=== PATIENT | female | born 1980 | race Caucasian/White ===

== ENCOUNTER 2019-12-30 12:07 | Emergency (ER) | payer MEDICAID, SELFPAY ==
[2019-12-30 13:13] VITALS: BP 117/64; PULSE 78; RESP 16; TEMP 36.2; O2SAT 100; BMI 25.0
--- NOTE | 2019-12-30 13:29 | PC.NURSE ---
patient a&ox3, [facility]- pt has bilateral raccoon eyes, rt forhead abrasion which she said previously had swelling to location, pt also has bilat knee abrasions, pt states she has had ongoing dizziness, nausea and headache. vss, will continue to monitor.
--- NOTE | 2019-12-30 13:46 | CT_ITS ---
EXAMINATION: CT HEAD WITHOUT CONTRAST CT FACIAL BONES WITHOUT CONTRAST CLINICAL INFORMATION: Headache following fall. COMPARISON: None TECHNIQUE: Contiguous axial imaging was performed from the skull base to vertex without intravenous administration of contrast. Contiguous axial CT images of the facial bones were obtained without contrast. Sagittal and coronal reformats were provided and reviewed. This CT examination was performed using dose optimization techniques as appropriate, variously including the following: *Automated exposure control *Adjustment of mA and/or kV according to patient size (this includes techniques or standardized protocols for targeted exams where dose is matched to indication/reason for exam; i.e. extremities or head) *Use of iterative reconstruction technique DLP: 1064 mGy-cm FINDINGS: HEAD: There is no evidence of acute intracranial hemorrhage or territorial infarction. No abnormal mass effect or midline shift is seen. Renner to white matter differentiation is well preserved. No extra-axial fluid collections are identified. The ventricles are normal in size. Prominent extra-axial fluid within the posterior fossa which communicates with the 4th ventricle, consistent with a henry cisterna magna. There is no abnormal attenuation within the brain parenchyma. The osseous structures and soft tissues are normal. The mastoid air cells and visualized portions of the paranasal sinuses are well aerated. FACIAL BONES: There is no acute maxillofacial fracture. The pterygoid plates are intact. The zygomatic arches are intact. The lamina papyracea are intact. The orbital rims are intact. The paranasal sinuses are well aerated. No air-fluid levels are seen. There is no significant deviation of the nasal septum. The ostiomeatal complexes are clear. The lamina papyracea are intact. The ethmoid roofs are symmetric. The carotid canals are normally covered by bone. No maxillary periapical disease is seen. The mastoid air cells and visualized middle ear cavities are well aerated. The orbits are normal. The TMJs are unremarkable. The imaged portions of the brain demonstrate no acute abnormality. CT/CT facial bones wo con IMPRESSION: HEAD: No acute intracranial hemorrhage or mass effect. Henry cisterna magna. FACIAL BONES: No acute fracture or subluxation.
--- NOTE | 2019-12-30 14:23 | PC.NURSE ---
pt alert and oriented, skin appropriate for ethnicity, reports she was walking outside on wed, her leg locked up and pt was trying to avoid a hole in a road and fell face flat. since then having bad headaches/dizziness/vomiting on Wednesday. al juliao intact at this time. raccoon eyes/bruising to both of the eyes
--- NOTE | 2019-12-30 15:41 | ED_ITS ---
HPI - Fall General Chief Complaint: Fall Stated Complaint: head injury - fall Time Seen by Provider: 12/30/19 13:46 Source: patient Mode of arrival: ambulatory Limitations: no limitations History of Present Illness HPI Narrative: 39-year-old female presents ambulatory via triage with complaint of head injury status post mechanical fall. States she was getting out of her job and as she was crossing a crosswalk curb did not notice the step and tripped fell forward hitting the front of her head where she has an abrasion. States she had a slight headache ever since then and some nausea. There was no LOC. There is no neck pain. She has some pain in the forehead and right lateral aspect of the overall region. MD complaint: fall Onset (ago): day(s) ( Two days ago) Fall from: standing Place fall occurred: home Loss of consciousness: none Prolonged down time: no Symptoms prior to fall: none Context: tripped/slipped Location of injury: head and face Associated symptoms (after fall): headache Related Data Allergies Allergy/AdvReac Type Severity Reaction Status Date / Time Benadryl Allergy Unknown hives Uncoded 09/04/16 00:00 benadryl Allergy Unknown hives Uncoded 08/25/11 00:00 From Benadryl Allergy Unknown HIVES Uncoded 10/26/19 15:22 Review of Systems Review of Systems: Constitutional: No Weight loss, No Fever, No Chills, No Night Sweats, No Fatigue, No Malaise ENT/Mouth: No Hearing loss, No Ear Pain, No Nasal Congestion, No Sinus Pain, No Hoarseness, No sore throat, No Rhinorrhea, No Swallowing Difficulty Eyes: No Eye Pain, No Swelling, No Redness, No Foreign Body, No Discharge, No Vision Changes Cardiovascular: No Chest Pain, No SOB, No Dyspnea on Exertion, No Orthopnea, No Edema, No Palpitations Respiratory: No Cough, No Sputum, No Wheezing, No Smoke Exposure, No Dyspnea Gastrointestinal: No Nausea, No Vomiting, No Diarrhea, No Constipation, No abdominal Pain, No Hematochezia, No Melena Genitourinary: no irregular bleeding, No Dysuria, No Urinary Frequency, No Hematuria, No Urinary Incontinence, No Urgency, No Flank Pain, No Urinary Flow Changes, No Hesitancy Musculoskeletal: No joint pain, No Myalgias, No Joint Swelling Skin: No Skin Lesions, No rash Neuro: No Weakness, No Numbness, No Paresthesias, No Loss of Consciousness, No Dizziness, + Headache Psych: No Anxiety/Panic, No Depression, No SI/HI/AH/VH, No Social Issues, no alcohol intake or drug use Heme/Lymph: No Bruising, No Bleeding,No Lymphadenopathy Endocrine: No Polyuria, No Polydipsia, No Temperature Intolerance Yes all other systems are reviewed and are negative [facility] Past Medical History Medical History Anxiety Fibromyalgia PTSD (post-traumatic stress disorder) Social History Social History Alcohol intake: never Smoking Status: Never smoker Use of substances other than those prescribed or required for medical reasons: No Advance Directives: No Advance Directives Information Provided: No Physical Exam Vital Signs: Vital Signs: Last Vital Signs Temp 97.2 F 12/30/19 13:13 Pulse 78 12/30/19 13:13 Resp 16 12/30/19 13:13 BP 117/64 12/30/19 13:13 Pulse Ox 100 12/30/19 13:13 Body Mass Index 25.0 reviewed Const: General: cooperative and healthy appearing; No acute distress or intoxicated appearing Nutritional Appearance: average body habitus Orientation/consciousness: patient oriented x3 HENMT: Other: Head: Yes normal to inspection Head images: 1. abrasion Positive raccoon eyes Ears: hearing grossly normal bilaterally Eyes: General: appearance normal, both eyes and all related structures Visual Quintana: normal visual quintana by confrontation Neck: Neck: Yes normal visual inspection, No positive Brudzinski's sign, No positive Kernig's sign and No tender Thyroid: Thyroid normal Chest: Chest palpation & inspection: normal inspection of the chest Resp: Effort & Inspection: normal respiratory effort Cardio: Jugular venous distension: no JVD GI: Inspection: Yes normal to inspection Percussion: Yes normal to percussion Auscultation: normal bowel sounds : General: Yes no CVA tenderness Back/Spine/Pelvis: Back: no CVA tenderness Skin: General skin exam: no rashes or lesions noted Neuro: General: patient oriented x3 Extrem: General: Yes normal to inspection Course Course Course Narrative: resting comfortably in no acute distress on her cellphone. Head/facial CT no acute findings. Abrasion care/ return/follow-up instructions provided for concussion. Agreeable. Stable for discharge. MDM - Fall Differential Diagnosis Differential diagnosis: Likely concussion without loss of consciousness; Unlikely syncope, dislocation, fracture, compression fracture and concussion with loss of consciousness Medical Records Attestation: I reviewed the patient's medical records. Lab Data Attestation: I reviewed the patient's lab results. Imaging Data head/facial CT: Radiologist's impression: [address] [address] [address] Scan Report Signed Patient: Jenifer Miller RMR#: [id number] : 1980Acct:[id number] Age/Sex: 39 / FADM Date: 12/30/19 Loc: HO.ED Attending Dr: Ordering Physician: Rebel Avendano NP Date of Service: 12/30/19 Procedure(s): CT facial bones wo con Accession Number(s): [id number] cc: Rebel Avendano NP~ EXAMINATION: CT HEAD WITHOUT CONTRAST CT FACIAL BONES WITHOUT CONTRAST CLINICAL INFORMATION: Headache following fall. COMPARISON: None TECHNIQUE: Contiguous axial imaging was performed from the skull base to vertex without intravenous administration of contrast. Contiguous axial CT images of the facial bones were obtained without contrast. Sagittal and coronal reformats were provided and reviewed. This CT examination was performed using dose optimization techniques as appropriate, variously including the following: *Automated exposure control *Adjustment of mA and/or kV according to patient size (this includes techniques or standardized protocols for targeted exams where dose is matched to indication/reason for exam; i.e. extremities or head) *Use of iterative reconstruction technique DLP: 1064 mGy-cm FINDINGS: HEAD: There is no evidence of acute intracranial hemorrhage or territorial infarction. No abnormal mass effect or midline shift is seen. Renner to white matter differentiation is well preserved. No extra-axial fluid collections are identified. The ventricles are normal in size. Prominent extra-axial fluid within the posterior fossa which communicates with the 4th ventricle, consistent with a henry cisterna magna. There is no abnormal attenuation within the brain parenchyma. The osseous structures and soft tissues are normal. The mastoid air cells and visualized portions of the paranasal sinuses are well aerated. FACIAL BONES: There is no acute maxillofacial fracture. The pterygoid plates are intact. The zygomatic arches are intact. The lamina papyracea are intact. The orbital rims are intact. The paranasal sinuses are well aerated. No air-fluid levels are seen. There is no significant deviation of the nasal septum. The ostiomeatal complexes are clear. The lamina papyracea are intact. The ethmoid roofs are symmetric. The carotid canals are normally covered by bone. No maxillary periapical disease is seen. The mastoid air cells and visualized middle ear cavities are well aerated. The orbits are normal. The TMJs are unremarkable. The imaged portions of the brain demonstrate no acute abnormality. CT/CT facial bones wo con IMPRESSION: HEAD: No acute intracranial hemorrhage or mass effect. Henry cisterna magna. FACIAL BONES: No acute fracture or subluxation. Dictated By:LONA TSE MD Signed By:<Electronically signed by LONA TSE MD in OV>12/30/19 1524 DD/ 1346 TD/TT: X Ray Service Technician: SR Discharge Plan Discharge Clinical Impression: Abrasion, Concussion without loss of consciousness Contusion of forehead Qualifiers: Encounter type: initial encounter Qualified Code(s): S00.83XA - Contusion of other part of head, initial encounter Patient Disposition: Home, Self-Care Instructions: Black Eye (ED), Concussion (ED), Contusion in Adults (ED), Abrasion (ED) Additional Instructions: today you are given your tetanus vaccination He had a CT scan of your head and her face did not show any acute findings Abrasion care for home as instructed Likely suffered a mild concussion from this type head injury Follow home care instructions for concussions reviewed Return if any concerns or worsening symptoms Follow up with your primary care doctor as instructed Thank you Referrals: [facility] [Primary Care Provider] - 1 week
[2019-12-30 15:49] VITALS: BP 110/63; PULSE 69; O2SAT 99
== END 2019-12-30 16:04 | disposition home or self-care (01) ==
PROVIDERS: Emergency Provider Emergency Medicine
DX: S06.0X9A Concussion with loss of consciousness of unspecified duration, initial encounter (principal); S00.81XA Abrasion of other part of head, initial encounter; G44.309 Post-traumatic headache, unspecified, not intractable; W01.0XXA Fall on same level from slipping, tripping and stumbling without subsequent striking against object, initial encounter; Y93.01 Activity, walking, marching and hiking; Y92.480 Sidewalk as the place of occurrence of the external cause; Y99.9 Unspecified external cause status; Z23 Encounter for immunization
CPT/HCPCS: 70450; 70486; 90471; 90715; 99284

== ENCOUNTER → 2020-05-15 10:54 | Outpatient (BNVA) | payer MEDICAID, SELFPAY | PROVIDERS: Visit Provider Obstetrics & Gynecology ==

== ENCOUNTER 2020-06-11 08:27 | Outpatient (REF) | payer MEDICAID, SELFPAY ==
[2020-06-11 15:44] LABS: CT PCR NOT DETECTED (Not Detect.); NG PCR NOT DETECTED (Not Detect.)
[2020-06-12 11:10] LABS: BV Int Neg Control Negative (Negative); BV Int Pos Control Positive (Positive)
[2020-06-13 18:57] LABS: HPV mRNA E6/E7 rflx Not Detected (Not Detected)
== END 2020-06-11 08:28 | disposition home or self-care (01) ==
LOC: HO.LAB 08:27
PROVIDERS: Visit Provider Obstetrics & Gynecology
DX: Z01.419 Encounter for gynecological examination (general) (routine) without abnormal findings (principal); Z11.51 Encounter for screening for human papillomavirus (HPV)
CPT/HCPCS: 87480; 87491; 87510; 87591; 87624; 87660; 88142

== ENCOUNTER 2020-07-02 08:00 | Outpatient (RCR) | payer MEDICAID, SELFPAY | END 2020-08-14 11:46 | disposition home or self-care (01) | LOC: HO.WCC 08:00 | PROVIDERS: PCP Family Medicine; Visit Provider Physician Assistant | DX: T24.201D Burn of second degree of unspecified site of right lower limb, except ankle and foot, subsequent encounter (principal); T31.0 Burns involving less than 10% of body surface; M79.7 Fibromyalgia; G62.9 Polyneuropathy, unspecified; F17.210 Nicotine dependence, cigarettes, uncomplicated; Z79.899 Other long term (current) drug therapy; Z71.6 Tobacco abuse counseling | CPT/HCPCS: 16020; 97597; 99212 ==

== ENCOUNTER → 2020-07-31 08:12 | Outpatient (BNVA) | payer MEDICAID, SELFPAY | PROVIDERS: Visit Provider Obstetrics & Gynecology | DX: Z30.46 Encounter for surveillance of implantable subdermal contraceptive (principal) | CPT/HCPCS: 11981; 11982; 11983; J7307 ==

== ENCOUNTER 2022-03-16 08:44 | Outpatient (REF) | payer MEDICAID, SELFPAY ==
--- NOTE | ~2022-03-16 | XR_ITS ---
EXAMINATION: XR CHEST 2 VIEWS CLINICAL INFORMATION: Cough and shortness of breath. COMPARISON: Prior chest radiographs, most recently 10/18/2009. TECHNIQUE: Frontal and lateral views of the chest were obtained. FINDINGS: The heart, great vessels, pulmonary vasculature and mediastinum are normal. The lungs show no focal infiltrate, effusion or pneumothorax. There is no acute osseous abnormality. XR/XR chest 2V IMPRESSION: No active cardiopulmonary disease.
== END 2022-03-16 08:45 | disposition home or self-care (01) ==
LOC: HO.XRAY 08:44
PROVIDERS: Visit Provider Emergency Medicine
DX: R68.89 Other general symptoms and signs (principal)
CPT/HCPCS: 71046

== ENCOUNTER 2022-03-25 10:14 | Emergency (ER) | payer MEDICAID, SELFPAY ==
--- NOTE | ~2022-03-25 | US_ITS ---
EXAMINATION: US ABDOMEN LIMITED CLINICAL INFORMATION: Abnormal LFTs. COMPARISON: February 05, 2011 TECHNIQUE: Real-time imaging of the right upper quadrant abdominal viscera. FINDINGS: PANCREAS: Visualized portions unremarkable however the charting gland is obscured. LIVER: There is increased echogenicity consistent with fatty infiltration. The liver contour is normal. Parenchymal echogenicity is normal. No focal hepatic lesion. There is no intrahepatic biliary duct dilatation seen. GALLBLADDER: Normal. The gallbladder is physiologically distended without evidence of stones, sludge, polyps, wall thickening or pericholecystic fluid. COMMON BILE DUCT: Normal in caliber measuring 0.5 cm in diameter. RIGHT KIDNEY: Normal. No hydronephrosis. No renal calculi or focal parenchymal lesions. The kidney measures 12.8 cm in maximum dimension. FREE FLUID: None. US/US abdomen limited IMPRESSION: Increased echogenicity of the liver consistent with fatty infiltration/hepatocellular disease.
[2022-03-25 10:22] VITALS: BP 141/93; PULSE 113; RESP 18; TEMP 36.9; O2SAT 97; BMI 19.7
[2022-03-25 10:34] LABS: Hematocrit 37.1 % (37.0-47.0); Hemoglobin 13.2 g/dl (12.0-16.0); Mean Corpuscular HGB Conc 35.6 g/dl (31.0-35.0); Mean Corpuscular Hemoglobin 36.1 pg (27.0-33.0); Mean Corpuscular Volume 101.4 fL (80.0-98.0); Mean Platelet Volume 9.7 fL (9.4-12.3); Platelet Count 188 X10*3/uL (160-400); Red Blood Count 3.66 X10*6/uL (4.20-5.50); Red Cell Distribution Width 12.9 % (11.0-16.0); WBC ABN SCTR FOR CBC 1
[2022-03-25 10:56] LABS: Band Neutrophils Percent 0 % (3-5); Basophils Percent Manual 1 % (0-2); Lymphocytes Percent Manual 20 % (20-40); Monocytes Percent Manual 2 % (2-11); Neutrophils Percent Manual 77 % (45-73)
[2022-03-25 10:57] LABS: Basophils Abs Manual 0.1 X10*3/uL (0.0-0.2); Lymphocytes Absolute Manual 1.2 X10*3/uL (1.2-4.9); Macrocytosis 1+ (5-14) /OIF; Monocytes Absolute Manual 0.1 X10*3/uL (0.1-1.2); Neutrophils Absolute Manual 4.5 X10*3/uL (2.0-8.3); Platelet Estimate NORMAL (NORMAL); Platelet Morphology Comment NORMAL; RBC Morphology NOTED; White Blood Count 5.9 X10*3/uL (4.8-10.8)
[2022-03-25 10:58] LABS: Alanine Aminotransferase 76 U/L (0-31); Albumin Level 4.2 g/dL (3.5-5.0); Alkaline Phosphatase 137 U/L (39-117); Aspartate Amino Transferase 186 U/L (5-31); Blood Urea Nitrogen 9 mg/dL (9-16); Calcium 9.4 mg/dL (8.4-10.2); Creatinine Clr Calc Pharmacy 109.9; Estimated Glomerular Filt Rate > 60; Glucose Random 146 mg/dL (60-115); Total Protein 7.2 g/dL (6.5-8.0)
[2022-03-25 11:06] LABS: Anion Gap 21 (12-20); Carbon Dioxide 32 mmol/L (22-29); Chloride 94 mmol/L (96-108); Potassium 2.9 mmol/L (3.3-5.1); Sodium 144 mmol/L (135-145)
[2022-03-25 12:33] LABS: Appearance Urine Hazy; Color Urine ORANGE; Glucose Urine UA Negative (Negative); Leukocyte Esterase Urine Negative (Negative); Specific Gravity - Urine >= 1.030 (1.005-1.025); UMIC TRIGGER UACC YES; Urine Blood Negative (Negative); Urine Ketones Trace mg/dL (Negative); Urine Protein 30 (1+) mg/dL (Neg-Trace)
--- NOTE | 2022-03-25 12:39 | ED_ITS ---
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 <VINCE Echevarria - Last Filed: 03/25/22 17:53>
[2022-03-25 12:55] LABS: Lipase 17 U/L (8-78); Magnesium 1.3 mg/dL (1.6-2.6); Phosphorus 3.2 mg/dL (2.7-4.5)
[2022-03-25 13:04] LABS: Monotest Negative (Negative)
[2022-03-25 13:08] LABS: Bacteria Urine Trace (None Seen); RBC Urine 0-2 /HPF (0-2); Renal Epithelial Cells Urine Present; WBC Urine 0-5 /HPF (0-5)
[2022-03-25 13:09] LABS: Granular Casts Urine Present; Hyaline Casts Urine 0-2 /LPF (0-2)
[2022-03-25] MEDS: Lactated Ringers 1,000 ML 999 ML IV ×3 (13:32→18:00)
[2022-03-25] MEDS: ondansetron HCL 4 MG/2 ML VIAL IVPUSH (13:32)
[2022-03-25] MEDS: Magnesium Sulfate/H2O 2 GM/50 ML PIGGYBACK IV (13:36)
[2022-03-25] MEDS: Potassium Chloride ER 20 MEQ TAB.ER.PRT 40 MEQ PO ×3 (14:09→17:52)
[2022-03-25 16:00] VITALS: BP 134/69; PULSE 66; RESP 16; TEMP 37.7; O2SAT 97
[2022-03-25 17:29] LABS: Alanine Aminotransferase 59 U/L (0-31); Albumin Level 3.4 g/dL (3.5-5.0); Alkaline Phosphatase 112 U/L (39-117); Anion Gap 18 (12-20); Aspartate Amino Transferase 136 U/L (5-31); Bilirubin Total 2.1 mg/dL (0.0-1.0); Blood Urea Nitrogen 7 mg/dL (9-16); Calcium 8.6 mg/dL (8.4-10.2); Carbon Dioxide 30 mmol/L (22-29); Chloride 97 mmol/L (96-108); Creatinine Clr Calc Pharmacy 126.1; Estimated Glomerular Filt Rate > 60; Glucose Random 88 mg/dL (60-115); Magnesium 1.7 mg/dL (1.6-2.6); Potassium 3.1 mmol/L (3.3-5.1); Sodium 142 mmol/L (135-145); Total Protein 5.8 g/dL (6.5-8.0)
[2022-03-25] MEDS: Metoclopramide HCl 10 MG/2 ML VIAL IVPUSH (17:46)
[2022-03-25] MEDS: Potassium Chloride/H20 10 MEQ/100 ML PIGGYBACK 100 MEQ IV (17:52)
[2022-03-25 19:24] VITALS: BP 114/64; PULSE 77; RESP 16; O2SAT 100
[2022-03-25 20:14] LABS: Potassium 2.9 mmol/L (3.3-5.1)
== END 2022-03-25 21:55 | disposition home or self-care (01) ==
PROVIDERS: Physician Assistant; Emergency Provider Student in an Organized Health Care Education/Training Program
DX: K52.9 Noninfective gastroenteritis and colitis, unspecified (principal); E86.0 Dehydration; E87.6 Hypokalemia; R10.816 Epigastric abdominal tenderness
CPT/HCPCS: 36415; 76705; 80048; 80053; 80076; 81001; 81003; 83690; 83735; 84100; 84132; 85007; 85027; 86308; 96361; 96365; 96367; 96375; 99284; J2405; J2765; J3475

== ENCOUNTER 2022-04-21 18:36 | Emergency (ER) | payer MEDICAID, SELFPAY ==
[2022-04-21 18:41] VITALS: BP 116/73; PULSE 109; RESP 18; TEMP 37; O2SAT 97; BMI 20.2
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
[2022-04-21 19:07] LABS: MANUAL DIFF FLAG NO
[2022-04-21 19:09] LABS: Basophils Percent Auto 0.6 % (0-2); Eosinophils Absolute Auto 0.1 X10*3/uL (0.0-0.4); Eosinophils Percent Auto 1.4 % (0-4); Hematocrit 31.5 % (37.0-47.0); Hemoglobin 10.9 g/dl (12.0-16.0); Imm Gran Abs Auto 0.01 X10*3/uL (0.00-0.03); Imm Gran Pct Auto 0.2 % (0.0-0.4); Lymphocytes Absolute Auto 1.8 X10*3/uL (1.2-4.9); Lymphocytes Percent Auto 35.2 % (20-40); Mean Corpuscular HGB Conc 34.6 g/dl (31.0-35.0); Mean Corpuscular Hemoglobin 37.3 pg (27.0-33.0); Mean Corpuscular Volume 107.9 fL (80.0-98.0); Monocytes Absolute Auto 0.6 X10*3/uL (0.1-1.2); Monocytes Percent Auto 12.3 % (2-11); Neutrophils Absolute Auto 2.6 x10*3/uL (2.0-8.3); Neutrophils Percent Auto 50.3 % (45-73); Platelet Count 161 X10*3/uL (160-400); Red Blood Count 2.92 X10*6/uL (4.20-5.50); Red Cell Distribution Width 13.4 % (11.0-16.0); White Blood Count 5.1 X10*3/uL (4.8-10.8)
[2022-04-21 19:26] LABS: COVID-19 Test Negative (Negative); IDNOW Serial# 55D5AD1C
[2022-04-21 19:27] LABS: IDNOW Serial# 9DB6401D; Influenza A Negative (Negative); Influenza B2 Negative (Negative)
[2022-04-21 19:46] LABS: Erythrocyte Sedimentation Rate 19 MM/HR (0-20)
[2022-04-21 19:59] LABS: Alanine Aminotransferase 88 U/L (0-31); Albumin Level 4.1 g/dL (3.5-5.0); Alkaline Phosphatase 94 U/L (39-117); Anion Gap 15 (12-20); Aspartate Amino Transferase 101 U/L (5-31); Bilirubin Direct 0.2 mg/dL (0.0-0.5); Bilirubin Total 0.5 mg/dL (0.0-1.0); Blood Urea Nitrogen 10 mg/dL (9-16); C Reactive Protein < 0.10 mg/dL (< or = 0.50); Carbon Dioxide 28 mmol/L (22-29); Chloride 103 mmol/L (96-108); Creatinine Clr Calc Pharmacy 118.7; Estimated Glomerular Filt Rate > 60; Ethanol 148 mg/dL; Glucose Random 92 mg/dL (60-115); Lipase 39 U/L (8-78); Magnesium 1.8 mg/dL (1.6-2.6); Potassium 3.7 mmol/L (3.3-5.1); Sodium 142 mmol/L (135-145); Total Protein 6.9 g/dL (6.5-8.0)
[2022-04-21 20:53] LABS: Ferritin 2044 ng/mL (10-122)
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
[2022-04-21 22:38] LABS: Iron 108 mcg/dL (30-160); Percent Iron Saturation 36 % (15-50); Total Iron Binding Capacity 296 mcg/dL (228-428); Unsaturated Iron Binding 188 ug/dL
[2022-04-21 23:03] VITALS: BP 114/71; PULSE 85; RESP 17; TEMP 37.1; O2SAT 100
[2022-04-21 23:12] LABS: Appearance Urine Clear; Color Urine Yellow; Glucose Urine UA Negative (Negative); Leukocyte Esterase Urine Negative (Negative); Nitrite Urine Negative (Negative); PH 6.5 (5.0-9.0); Specific Gravity - Urine 1.025 (1.005-1.025); Urine Blood Negative (Negative); Urine Ketones Trace mg/dL (Negative); Urine Protein Negative (Neg-Trace)
[2022-04-22 04:14] LABS: HBS Num1 0.01 mIU/mL (0-7.99); HBsAGNum1 0.25 S/CO (0.00-0.99); Hepatitis A Antibody IgM 0.25 Index (0-0.79); Hepatitis B Core Antibody Nonreactive (Nonreactive); Hepatitis B Surface Antigen Negative (Negative); ~Hepatitis A Antibody IgM Nonreactive (Nonreactive); ~Hepatitis B Surface Antibody NONREACTIVE (Nonreactive); ~Hepatitis C Antibody Nonreactive (Nonreactive)
[2022-04-22 06:10] LABS: Lactate Dehydrogenase 220 U/L (122-220)
[2022-04-22 06:26] LABS: Immature Retic Fraction 21.6 % (3.0-15.9); Retic HGB Equivalent 38.5 pg (30.0-35.0); Reticulocyte Percent 2.5 % (0.5-1.8); Reticulocytes Absolute 0.073 X10*6/uL (0.026-0.095)
[2022-04-22 06:47] LABS: Folate > 20.0 ng/mL (> or = 4.0); Vitamin B12 508 pg/mL (200-900)
[2022-04-23 15:15] LABS: Transferrin 255 mg/dL (188-341)
[2022-04-24 14:37] LABS: IgA 299 mg/dL (47-310); IgG 1042 mg/dL (600-1640); IgM 38 mg/dL (50-300)
== END 2022-04-22 00:25 | disposition home or self-care (01) ==
PROVIDERS: Internal Medicine; Physician Assistant; Emergency Provider Emergency Medicine
DX: R79.89 Other specified abnormal findings of blood chemistry (principal); F17.210 Nicotine dependence, cigarettes, uncomplicated; F12.90 Cannabis use, unspecified, uncomplicated; Z20.822 Contact with and (suspected) exposure to COVID-19; Z79.899 Other long term (current) drug therapy
CPT/HCPCS: 36415; 80048; 80076; 81003; 81256; 82077; 82607; 82728; 82746; 82784; 83540; 83615; 83690; 83735; 84466; 85025; 85045; 85610; 85652; 86140; 86704; 86706; 86709; 86803; 87340; 87502; 87635; 99284

== ENCOUNTER 2022-09-01 09:49 | Outpatient (AMB) | payer MEDICAID, SELFPAY ==
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
[2022-09-01 09:52] VITALS: BP 126/84; BMI 21.5
== END 2022-09-01 11:08 | disposition home or self-care (01) ==
LOC: HO.HWS 09:49
PROVIDERS: Visit Provider Advanced Practice Midwife
DX: Z01.419 Encounter for gynecological examination (general) (routine) without abnormal findings (principal); Z87.42 Personal history of other diseases of the female genital tract; Z97.5 Presence of (intrauterine) contraceptive device; Z11.3 Encounter for screening for infections with a predominantly sexual mode of transmission; Z12.39 Encounter for other screening for malignant neoplasm of breast
CPT/HCPCS: 99395

== ENCOUNTER 2022-09-01 09:49 | Outpatient (REF) | payer MEDICAID, SELFPAY ==
[2022-09-01 18:00] LABS: CT PCR NOT DETECTED (Not Detect.); NG PCR NOT DETECTED (Not Detect.)
[2022-09-02 14:54] LABS: BV Int Neg Control Negative (Negative); BV Int Pos Control Positive (Positive)
[2022-09-08 21:14] LABS: HPV mRNA E6/E7 rflx Not Detected (Not Detected)
== END 2022-09-01 09:50 | disposition home or self-care (01) ==
LOC: HO.LNP 09:49
PROVIDERS: Visit Provider Advanced Practice Midwife
DX: Z01.419 Encounter for gynecological examination (general) (routine) without abnormal findings (principal); Z11.51 Encounter for screening for human papillomavirus (HPV); Z87.42 Personal history of other diseases of the female genital tract; Z97.5 Presence of (intrauterine) contraceptive device
CPT/HCPCS: 0353U; 87480; 87510; 87624; 87660; 88142; 99395

== ENCOUNTER 2023-09-15 09:50 | Outpatient (REF) | payer MEDICAID, SELFPAY ==
[2023-09-17 02:36] LABS: CT PCR NOT DETECTED (Not Detect.); NG PCR NOT DETECTED (Not Detect.)
[2023-09-17 11:01] LABS: Bacterial Vaginosis PCR NEGATIVE (Negative); Candida Group PCR NOT DETECTED (Not Detect); Candida glab krusei PCR NOT DETECTED (Not Detect); Trichomonas vaginalis PCR NOT DETECTED (Not Detect)
[2023-09-21 05:09] LABS: HPV 16 RNA NOT DETECTED (NOT DETECTED); HPV mRNA E6/E7 Detected (Not Detected)
== END 2023-09-15 09:51 | disposition home or self-care (01) ==
LOC: HO.LAB 09:50
PROVIDERS: Visit Provider Advanced Practice Midwife
DX: Z01.419 Encounter for gynecological examination (general) (routine) without abnormal findings (principal); N89.8 Other specified noninflammatory disorders of vagina; Z20.2 Contact with and (suspected) exposure to infections with a predominantly sexual mode of transmission
CPT/HCPCS: 0352U; 36415; 87491; 87591; 87624; 87625; 88175; 99396

== ENCOUNTER 2023-09-15 09:50 | Outpatient (AMB) | payer MEDICAID, SELFPAY ==
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
[2023-09-15 10:00] VITALS: BP 126/78; BMI 21.1
== END 2023-09-15 10:48 | disposition home or self-care (01) ==
LOC: HO.HWSM 09:50
PROVIDERS: PCP General Practice; Visit Provider Advanced Practice Midwife
DX: Z12.39 Encounter for other screening for malignant neoplasm of breast (principal); Z11.3 Encounter for screening for infections with a predominantly sexual mode of transmission; Z01.419 Encounter for gynecological examination (general) (routine) without abnormal findings; Z97.5 Presence of (intrauterine) contraceptive device; Z87.42 Personal history of other diseases of the female genital tract; F17.200 Nicotine dependence, unspecified, uncomplicated; F43.21 Adjustment disorder with depressed mood; F41.9 Anxiety disorder, unspecified
CPT/HCPCS: 99396

== ENCOUNTER 2023-10-26 09:20 | Outpatient (AMB) | payer MEDICAID, SELFPAY ==
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
== END 2023-10-26 10:22 | disposition home or self-care (01) ==
PROVIDERS: Visit Provider Advanced Practice Midwife
DX: Z30.46 Encounter for surveillance of implantable subdermal contraceptive (principal); F41.9 Anxiety disorder, unspecified; Z87.42 Personal history of other diseases of the female genital tract; Z32.02 Encounter for pregnancy test, result negative
CPT/HCPCS: 11983; 99213

== ENCOUNTER → 2023-10-26 09:20 | Outpatient (BNVA) | payer MEDICAID, SELFPAY | PROVIDERS: Visit Provider Advanced Practice Midwife | DX: F41.9 Anxiety disorder, unspecified (principal); Z87.42 Personal history of other diseases of the female genital tract; Z30.46 Encounter for surveillance of implantable subdermal contraceptive | CPT/HCPCS: 11983; 81025; 99212; J7307 ==

== ENCOUNTER 2023-12-01 19:02 | Emergency (ER) | payer MEDICAID, SELFPAY ==
--- NOTE | ~2023-12-01 | XR_ITS ---
EXAMINATION: XR CHEST CLINICAL INFORMATION: Chest pain COMPARISON: cxr on 03/16/22 TECHNIQUE: 2 views of the chest were obtained. FINDINGS: No significant abnormality is noted involving the heart, lungs, mediastinum, bony thorax or soft tissues. XR/XR chest 2V IMPRESSION: Unremarkable examination. Electronically signed by: Tatyana Groves MD 12/01/2023 09:03 PM EDT RP
--- NOTE | 2023-12-01 19:07 | ECG_ITS ---
Test Reason : CP Blood Pressure : / mmHG Vent. Rate : 097 BPM Atrial Rate : 097 BPM P-R Int : 132 ms QRS Dur : 086 ms QT Int : 380 ms P-R-T Axes : 056 073 010 degrees QTc Int : 482 ms Normal sinus rhythm Nonspecific ST and T wave abnormality Prolonged QT Abnormal ECG When compared with ECG of 19-OCT-2019 15:37, Non-specific change in ST segment in Anterior leads T wave inversion now evident in Inferior leads Nonspecific T wave abnormality now evident in Anterior leads Referred By: Mer Reynolds Electronically Signed By:Noe Rodarte
[2023-12-01 19:47] VITALS: BP 116/77; PULSE 92; RESP 18; TEMP 36.3; O2SAT 100; BMI 20.8
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
[2023-12-01 20:03] LABS: MANUAL DIFF FLAG NO
[2023-12-01 20:04] LABS: Basophils Percent Auto 0.4 % (0-2); Eosinophils Percent Auto 0.4 % (0-4); Hematocrit 35.3 % (37.0-47.0); Hemoglobin 12.9 g/dl (12.0-16.0); Imm Gran Abs Auto 0.01 X10*3/uL (0.00-0.03); Imm Gran Pct Auto 0.2 % (0.0-0.4); Lymphocytes Absolute Auto 1.7 X10*3/uL (1.2-4.9); Lymphocytes Percent Auto 32.7 % (20-40); Mean Corpuscular HGB Conc 36.5 g/dl (31.0-35.0); Mean Corpuscular Hemoglobin 36.4 pg (27.0-33.0); Mean Corpuscular Volume 99.7 fL (80.0-98.0); Mean Platelet Volume 11.4 fL (9.4-12.3); Monocytes Absolute Auto 0.3 X10*3/uL (0.1-1.2); Monocytes Percent Auto 6.3 % (2-11); Red Blood Count 3.54 X10*6/uL (4.20-5.50); Red Cell Distribution Width 12.6 % (11.0-16.0)
[2023-12-01 20:05] LABS: Platelet Count 96 X10*3/uL (160-400)
[2023-12-01 20:22] LABS: Alanine Aminotransferase 62 U/L (0-31); Albumin Level 4.5 g/dL (3.5-5.0); Alkaline Phosphatase 85 U/L (39-117); Anion Gap 27 (12-20); Aspartate Amino Transferase 109 U/L (5-31); Bilirubin Direct 0.7 mg/dL (0.0-0.5); Bilirubin Total 1.2 mg/dL (0.0-1.0); Blood Urea Nitrogen 14 mg/dL (9-16); Calcium 9.4 mg/dL (8.4-10.2); Carbon Dioxide 27 mmol/L (22-29); Chloride 86 mmol/L (96-108); Creatinine Clr Calc Pharmacy 106.8; Estimated Glomerular Filt Rate > 60; Glucose Random 64 mg/dL (60-115); Lipase 16 U/L (8-78); Potassium 2.2 mmol/L (3.3-5.1); Sodium 138 mmol/L (135-145); Total Protein 7.8 g/dL (6.5-8.0)
[2023-12-01 20:25] LABS: Troponin-I High Sensitivity < 2.7 ng/L (<3.5-17.0)
[2023-12-01 20:39] LABS: Influenza A PCR NEGATIVE (Negative); Influenza B PCR NEGATIVE (Negative); Resp Syncy Virus RNA Qual PCR NEGATIVE (Negative); SARS COV2 PCR INHOUSE NEGATIVE (Negative)
[2023-12-01 22:34] VITALS: BP 113/70; PULSE 80; RESP 18; TEMP 36.6; O2SAT 100
--- NOTE | 2023-12-01 23:04 | MHC.EDTECH ---
This tech assumed care of pt at this time,rounded and introduced self to patient,patient ambulated to the bathroom with a steady gait,urine sample collected and sent to lab,call sung in reach
--- NOTE | 2023-12-01 23:05 | PC.NURSE ---
critical lab: mag 1.3
[2023-12-01 23:07] LABS: Magnesium 1.3 mg/dL (1.6-2.6)
[2023-12-01 23:15] LABS: Appearance Urine Clear; Color Urine Yellow; Glucose Urine UA Negative (Negative); Leukocyte Esterase Urine Negative (Negative); Nitrite Urine Negative (Negative); PH 5.5 (5.0-9.0); Specific Gravity - Urine 1.025 (1.005-1.025); UMIC TRIGGER UACC YES; Urine Blood Small (1+) (Negative); Urine Ketones >=160 mg/dL (Negative); Urine Protein Trace mg/dL (Neg-Trace)
--- NOTE | 2023-12-01 23:19 | PC.NURSE ---
pt ambulated to bathroom with steady slow gait, UA obtained. 20g IV RAC
[2023-12-01 23:30] LABS: Bacteria Urine None Seen (None Seen); Hyaline Casts Urine 0-2 /LPF (0-2); RBC Urine 0-2 /HPF (0-2); Squamous Epithelial Cell Urine 0-2 /HPF (0-2); WBC Urine 0-5 /HPF (0-5)
[2023-12-01] MEDS: Potassium Bicarbonate/Cit AC 25 MEQ TABLET.EFF 50 MEQ PO (23:55)
[2023-12-01] MEDS: Potassium Chloride/H20 10 MEQ/100 ML PIGGYBACK 100 MEQ IV (23:55)
[2023-12-01] MEDS: Magnesium Sulfate/H2O 2 GM/50 ML PIGGYBACK IV (23:55)
--- NOTE | 2023-12-02 00:29 | PC.NURSE ---
rate of potassium infusion decreased d/t pain in arm
[2023-12-02] MEDS: Potassium Chloride/H20 10 MEQ/100 ML PIGGYBACK 100 MEQ IV ×3 (01:28→04:20)
[2023-12-02 01:38] VITALS: BP 111/70; PULSE 76; RESP 16; O2SAT 98
[2023-12-02 03:52] VITALS: BP 113/69; PULSE 74; RESP 16; TEMP 36.8; O2SAT 97
[2023-12-02 04:18] LABS: Anion Gap 24 (12-20); Blood Urea Nitrogen 12 mg/dL (9-16); Calcium 8.7 mg/dL (8.4-10.2); Carbon Dioxide 24 mmol/L (22-29); Chloride 87 mmol/L (96-108); Creatinine Clr Calc Pharmacy 111.9; Estimated Glomerular Filt Rate > 60; Glucose Random 106 mg/dL (60-115); Potassium 2.6 mmol/L (3.3-5.1); Sodium 132 mmol/L (135-145)
[2023-12-02] MEDS: Potassium Bicarbonate/Cit AC 25 MEQ TABLET.EFF 50 MEQ PO (04:20)
[2023-12-02 05:56] VITALS: BP 115/71; PULSE 80; RESP 16; TEMP 36.8; O2SAT 98
--- NOTE | 2023-12-02 06:04 | MHC.EDTECH ---
Repeat lab drawn and sent to lab,patient ambulated to the bathroom with a steady gait,vitals taken,call almaraz in reach
[2023-12-02 06:36] LABS: Anion Gap 23 (12-20); Blood Urea Nitrogen 11 mg/dL (9-16); Calcium 8.9 mg/dL (8.4-10.2); Carbon Dioxide 26 mmol/L (22-29); Chloride 87 mmol/L (96-108); Creatinine Clr Calc Pharmacy 106.8; Estimated Glomerular Filt Rate > 60; Glucose Random 99 mg/dL (60-115); Potassium 4.3 mmol/L (3.3-5.1); Sodium 132 mmol/L (135-145)
[2023-12-02] MEDS: cefuroxime axetiL 500 MG TABLET PO (08:05)
[2023-12-02 08:12] VITALS: BP 135/90; PULSE 84; RESP 18; TEMP 36.7; O2SAT 97
== END 2023-12-02 08:33 | disposition home or self-care (01) ==
PROVIDERS: Physician Assistant Medical; Emergency Provider Internal Medicine
DX: J20.9 Acute bronchitis, unspecified (principal); E87.6 Hypokalemia; E83.42 Hypomagnesemia; R06.02 Shortness of breath; Z03.818 Encounter for observation for suspected exposure to other biological agents ruled out; F17.210 Nicotine dependence, cigarettes, uncomplicated
CPT/HCPCS: 0241U; 36415; 71046; 80048; 80076; 81001; 83690; 83735; 84484; 85025; 93005; 96365; 96366; 96375; 99285; J3475; J3480

== ENCOUNTER → 2023-12-01 19:07 | Outpatient (BNV) | payer MEDICAID, SELFPAY | PROVIDERS: Emergency Provider Internal Medicine; Visit Provider Internal Medicine Cardiovascular Disease | DX: R94.31 Abnormal electrocardiogram [ECG] [EKG] (principal) | CPT/HCPCS: 93010 ==

== ENCOUNTER 2024-11-18 22:01 | Emergency (ER) | payer MEDICAID, SELFPAY ==
--- NOTE | ~2024-11-18 | XR_ITS ---
CLINICAL HISTORY: pain 3 view left foot Comparison: None provided Findings: Bones intact. No dislocations. No significant loss of joint space, osteophytes, or erosions. No ankle effusion. No radiopaque foreign body. IMPRESSION: 1. No acute findings. This document has been electronically signed by: Eric Walker MD on 11/18/2024 22:57:52
[2024-11-18 22:03] VITALS: BP 148/69; PULSE 101; RESP 18; TEMP 36.6; O2SAT 99; BMI 20.5
--- OUTSIDE RECORDS SUMMARY | 2024-11-18 22:41 | XMS_ITS | Encounter Summary ---
Demographics Address [address] [facility] [address] [place] [address] Mobile Phone Preferred Language en Marital Status Unknown Anabaptist Affiliation Unknown Race Other Race Ethnic Group Unknown Author Organization [employer] Address [address] [facility] 7[address] [place] [address] Care Team Providers Care Manager Presentation Name Role Phone Colette Herrera CABLE ENGINEER Primary Care Provider Salma Abdi MD Primary Care Provider Encounter Details Date Type Department Care Team (Late st Contact Info) Description 11/05/2022 Abstract [facility] MEDICINE [address] [place] [address] Aaliyah Mosqueda Social History Tobacco Use Types Packs/Day Years Used Date Smoking Tobacco: Every Day Cigarettes 0.1 23 Smokeless Tobacco: Never Depression Answer Date Recorded Patient Health Questionnaire-9 Score 7 07/15/2022 Depression Answer Date Recorded Patient Health Questionnaire-2 Score 0 07/15/2022 Comments Unknown Sex and Gender Information Value Date Recorded Sex Assigned at Female 12/08/2021 10:21 AM EDT Legal Sex Female 10:21 AM EDT Gender Identity Female 12/08/2021 10:21 AM EDT Sexual Orientation Don't know 12/08/2021 10 :21 AM EDT documented as of this encounter Plan of Treatment Not on file documented as of this encounter Procedures Procedure Name Priority Date/Time Associated Diagnosis Comments PAP/HPV Routine 06/11/2020 documented in this encounter Results * Pap Smear (06/11/2020) Pap Negative for intraephithelial lesion or malignancy Negative for intraephithelial lesion or malignancy, Other HPV Undetected us Historical Provider HEALTH MAINTENANCE Final Result documented in this encounter Visit Diagnoses Not on filedocumented in this encounter Additional Health Concerns Assessment Noted Time PHQ-9 Depression Total Score: 7 07/16/19 3:14 PM EDT documented as of this encounter Care Teams Manager Presentation Relationship Specialty Start Date End Date Colette Herrera FNP PCP - General Family Medicine 03/26/22 11/16/22 Salma Vinson MD [address] [place] [address] PCP - General Family Medicine 11/17/22 documented as of this encounter
--- OUTSIDE RECORDS SUMMARY | 2024-11-18 22:41 | XMS_ITS | Clinical Summary ---
Demographics Address [address] [facility] [address] [place] [address] Mobile Phone Preferred Language en Marital Status Unknown Rastafari Affiliation Unknown Race Other Race Ethnic Group Unknown Author Organization [employer] Address [address] [facility] [address] [place] [address] Care Team Providers Care Hatchery Employee Name Role Phone Salma Vinson MD Primary Care Provider [phone] Allergies Active Allergy Reactions Criticality Noted Date Comments [place] Rash Low 06/15/2023 Activated by ketchup Diphenhydramine 12/24/2011 Dust Mite Extract 06/15/2023 Molds & Smuts 06/15/2023 Shellfish Protein-Containing Drug Products Anaphylaxis,Hives High 04/07/2023 Medications acetaminophen (Tylenol) 500 MG tabletIndication s:Influenza-like symptoms Take 2 tablets (1,000 mg) by mouth every 6 (six) hours if needed for moderate pain or fever for up to 25 doses. 50 tablet 3 Active ibuprofen 400 MG tabletIndication s:Influenza-like symptoms Take 1 tablet (400 mg) by mouth every 6 (six) hours if needed for moderate pain or fever for up to 30 doses. 30 tablet 3 Active ondansetron (Zofran) 4 MG tabletIndication s:Influenza-like symptoms Take 1 tablet (4 mg) by mouth every 8 (eight) hours if needed for nausea or vomiting for up to 12 doses. 12 tablet 3 Active SUMAtriptan (Imitrex) 50 MG tabletIndication s:Influenza-like symptoms Take 1 tablet (50 mg) by mouth 1 (one) time if needed for migraine for up to 1 dose. May repeat dose once in 2 hours if no relief. Do not exceed 2 doses in 24 hours. 9 tablet 1 3 Active ramelteon (Rozerem) 8 MG tabletIndication s:Other insomnia Take 1 tablet (8 mg) by mouth at bedtime. 90 tablet 1 3 Active Sod Fluoride-Potassi um Nitrate 1.1-5 % pasteIndications :Dental caries [place] teeth for 2 minutes, morning and night. Spit, do not rinse. Do not eat or drink anything for 30 minutes following brushing. 112 g 3 3 Active Additional Information Patient not taking.Reported on 07/09/2023 Sodium Fluoride (PreviDent 5000 Booster Plus) 1.1 % paste Apply 1 Application. to teeth 2 times daily. 112 g 3 4 Active Additional Information Patient not taking.Reported on 07/09/2023 albuterol 108 (90 Base) MCG/ACT inhalerIndicatio ns:Acute bronchitis, unspecified organism Inhale 2 puffs every 4 (four) hours if needed for wheezing or shortness of breath. 18 g 1 4 11/29/19 25 Active omeprazole OTC (PriLOSEC OTC) 20 MG EC tablet Take 1 tablet (20 mg) by mouth before breakfast and before evening meal. Do not crush, chew, or split. 60 tablet 11 4 11/29/19 25 Active Active Problems Problem Noted Date Diagnosed Date Dental abscess 08/24/2022 Assessment & Plan (08/24/2022 4:37 PM EDT): Start Augmentin to cover anaerobes, spoke with our dental clinic and Uriah will make an appt this week, patient will go to check on that . Needs furhter evaluation to ro osteomyelitis due to poor dentition. Mouth wash with warm water/salt several times per day Avoid Food/drinks on that side Quit smoking. Fu w PCP Elevated LFTs 07/16/2022 Elevated ferritin level 07/16/2022 Overview (09/20/2022): 04/21/22: Hemochromatosis gene analysis pending, F[place] [facility] [place] Hypokalemia 07/16/2022 Overview (09/19/2022): ABD exam normal Improved after ED visit 04/21/22 Potassium WNL again Pt is staying hydrated Drinking water and electrolytes Eating low fat, high vegetable diet Assessment & Plan (09/19/2022 10:38 PM EDT): Continue hydration Low fat diet Has GI upcoming appt F/u PRN Dehydration 07/15/2022 Overview (09/19/2022): ABD exam normal Improved after ED visit 04/21/22 Potassium WNL again Pt is staying hydrated Drinking water and electrolytes Eating low fat, high vegetable diet Assessment & Plan (09/19/2022 10:39 PM EDT): Continue hydration F/u PRN Other insomnia 07/15/2022 PTSD (post-traumatic stress disorder) 07/15/2022 Bruises easily 07/15/2022 Health care maintenance 07/15/2022 Anxiety 10/19/2011 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 jamie fied surface antigen) 11/21/2012,10/20/2011 Tdap 12/30/2019,05/21/2016,10/20/2011 Family History Medical History Relation Name Comments Diabetes Father Hypertension Father Breast cancer Maternal Grandmother Breast cancer Mother's Sister Uterine cancer Sister Relation Name Status Comments Father Maternal Grandmother Mother's Sister Sister Social History Tobacco Use Types Packs/Day Years Used Date Smoking Tobacco: Every Day Cigarettes 0.1 23 Smokeless Tobacco: Never Tobacco Cessation:Ready to Q uit: Not Asked; Counseling Given: Not Answered Alcohol Use Standard Drinks/Week Comments Yes 0 (1 standard drink = 0.6 oz pur e alcohol) Depression Answer Date Recorded Patient Health Questionnaire-9 Score 7 07/15/2022 Housing Stability Answer Date Recorded What is your housing situation today? I have housing today, but I am worried about losing housing in the future 11/16/[address] you li ve. Do you have problems with any of the following? Pests such as bugs, ants, or mice 11/16/2022 Food Insecurity Answer Date Recorded Within the past 12 months, y ou worried that your food would run out before you got money to buy more: Never True 11/30/2022 Within the past 12 months,th e food you bought just didn't last and you didn't have enough money to get more: Never True Transportation Answer Date Recorded In the past 12 months, has l ack of transportation kept you from medical appts, meetings, work or from getting things needed for daily living? No 11/30/2022 Utilities Answer Date Recorded In the past 12 months, has t he electric, gas, oil or water company threatened to shut off services in your home? Yes 11/16/2022 Depression Answer Date Recorded Patient Health Questionnaire-2 Score 0 07/15/2022 Comments Unknown Sex and Gender Information Value Date Recorded Sex Assigned at Female 12/08/2021 10:21 AM EDT Legal Sex Female 10:21 AM EDT Gender Identity Female 12/08/2021 10:21 AM EDT Sexual Orientation Don't know 12/08/2021 10 :21 AM EDT Last Filed Vital Signs Vital Sign Reading Time Taken Comments Blood Pressure 118/82 11/29/2023 9:07 AM EDT Pulse 86 11/29/2023 9:07 AM EDT Temperature 36.4 C (97.6 F) 11/29/2023 9:07 AM EDT Respiratory Rate 18 11/29/2023 9:07 AM EDT Oxygen Saturation 98% 09/02/2022 9:13 AM EDT Inhaled Oxygen Concentration - - Weight 60.4 kg (133 lb 3.2 oz) 11/29/2023 9:07 A M EDT Height 170.2 cm (5' 7 ) 11/29/2023 9:07 AM EDT Body Mass Index 20.86 11/29/2023 9:07 AM EDT Plan of Treatment Health Maintenance Due Date Last Done Comments HIV Screening 1980 Disability Screening 1982 Alcohol/Substance Use Screening 1994 Family Planning (PISQ) 1997 HPV Vaccines (1 - 3-dose series) 1997 Pneumococcal Vaccine: Pediatrics (0 to 5 Years) and At-Risk Patients (6 to 49) Years (1 of 2 - PCV) 2001 Mammogram 2022 Hepatitis B Vaccines (3 of 3 - 19+ 3-dose series) 01/20/2023 08/20/2022, 07/21/2022 Pap Smear 06/12/2023 06/11/2020 Depression Screening 07/16/2023 07/15/2022, 07/16/19 SDOH Screening 09/03/2023 09/02/2022 Dental X-Ray: Bitewings 09/26/2023 09/24/2022 Dental Oral Exam 10/07/2023 04/07/2023, 09/24/2022 Dental Prophylaxis 10/07/2023 04/07/2023 COVID-19 Vaccine ( - 2024- season) 2024 07/24/2020, 06/26/2020 Influenza Vaccine (#1) 2024 , 02/15/2017, 01/27/2016, Additional history exists Tobacco Screening 11/28/2024 11/29/2023 Cervical Cancer Screening 06/11/2025 HPV/Cotest 06/11/2025 06/11/2020, 05/0 05/2020, 06/11/2020, Additional history exists Dental X-Ray: Full Mouth 09/25/2025 09/24/2022 Lipid Panel 07/16/2027 07/15/2022 DTaP/Tdap/Td Vaccines (4 - Td or Tdap) 12/29/2029 12/30/2019, 05/21/2016, 10/20/2011 Zoster Vaccines (1 of 2) 2032 RSV Patients and Patients Aged 60 years or older (1 - 1-dose 75+ series) 2057 Hepatitis C Screening Completed 07/16/2022 HIB Vaccines Aged Out No longer eligi ble based on patient's age to complete this topic Hepatitis A Vaccines Aged Out No long er eligible based on patient's age to complete this topic IPV Vaccines Aged Out No longer eligi ble based on patient's age to complete this topic Meningococcal B Vaccine Aged Out No l onger eligible based on patient's age to complete this topic Meningococcal Vaccine Aged Out No miriam liam eligible based on patient's age to complete this topic RSV under 20 months Aged Out No longe r eligible based on patient's age to complete this topic Rotavirus Vaccines Aged Out No longer eligible based on patient's age to complete this topic Procedures Procedure Name Priority Date/Time Associated Diagnosis Comments PROPHYLAXIS - ADULT Routine 04/07/2023 8 :00 AM EST Dental calculus Periodontal disease PERIODIC ORAL EVALUATION - ESTABLISHED PATIENT Routine 04/07/2023 8:00 AM EST INTRAORAL - COMPLETE SERIES OF RADIOGRAPHIC IMAGES Routine 09/24/2022 10:30 AM EDT Periodontal disease Dental caries HEPATITIS C AB W/REFL TO HCV RNA, QN, PCR Routine 07/16/2022 3:14 PM EDT Elevated LFTs Elevated ferritin level LIPID PANEL, STANDARD Routine 07/15/2022 4:21 PM EDT HM PAP/HPV Routine 06/11/2020 from Last 3 Months or Most Recently Relevant to Health Maintenance Results * Hepatitis C Antibody with Reflex to HCV, RNA, Quantitative, Real-Time PCR (07/16/2022 3:14 PM EDT) Hepatitis C Antibody NON-REACT LATRICIA NON-REACT LATRICIA [facility] [employer] Index 0.06 <1.00 [facility] [employer] Comment: HCV antibody was non-reactive. There is no laboratory evidence of HCV infection. In most cases, no further action is required. However, if recent HCV exposure is suspected, a test for HCV RNA (test code 47487) is suggested. For additional information please refer to http://education.[employer]/faq/JNZ43m4 (This link is being provided for informational/ educational purposes only.) Blood Venous blood specimen / Unknown 07/16/2022 3:14 PM EDT 07/16/2022 3:14 PM EDT Colette Herrera BIOSTATISTICS TEACHER LAB BLOOD ORDERABLES Final Result [address], [place] [address] [facility] [employer] [address] [place] [address] * (ABNORMAL) Lipid Panel, Standard (07/15/2022 4:21 PM EDT) Pathologist [facility] Cholesterol, Total 255(H) <200 mg/dL [facility] HDL Cholesterol 112 > OR = 50 mg/dL [facility] [employer] Triglycerides 81 <150 mg/dL [facility] [employer] LDL Cholesterol 125(H) mg/dL (calc) [facility] [employer] Comment: Reference range: <100 Desirable range <100 mg/dL for primary prevention; <70 mg/dL for patients with CHD or diabetic patients with > or = 2 CHD risk factors. LDL-C is now calculated using the Ines calculation, which is a validated novel method providing better accuracy than the Friedewald equation in the estimation of LDL-C. Ming SS et al. SABINO. 2013;310(19): 8976-0556 (http://education.[employer]/faq/UEP191) Chol/HDLC Ratio 2.3 <5.0 (calc) [facility] [employer] Non-HDL Cholesterol 143(H) <130 mg/dL (calc) [facility] [employer] Comment: For patients with diabetes plus 1 major ASCVD risk factor, treating to a non-HDL-C goal of <100 mg/dL (LDL-C of <70 mg/dL) is considered a therapeutic option. 07/15/2022 4:21 PM EDT 07/15/2022 4:21 PM EDT Narrative [facility] - 07/16/2022 11:58 AM EDT FASTING:UNKNOWN FASTING: UNKNOWN Colette Herrera [facility] LAB BLOOD ORDERABLES Final Result [facility] [address] [facility], [place] [address] [facility] [employer] [address] [place] [address] * Hm Pap Smear (06/11/2020) Pap Negative for intraephithelial lesion or malignancy Negative for intraephithelial lesion or malignancy, Other HPV Undetected us Historical Provider MD HEALTH MAINTENANCE Final Result from Last 3 Months or Most Recently Relevant to Health Maintenance Insurance [place] [facility] MEDICAID STAND ADULT Care Teams Hatchery Employee Relationship Specialty Start Date End Date Salma Vinson MD [address] [place] [address] PCP - General Family Medicine 11/17/22
--- OUTSIDE RECORDS SUMMARY | 2024-11-18 22:41 | XMS_ITS | Encounter Summary ---
Author Organization [employer] Address [address] [facility] 7t [place] [address] Care Team Providers Care Gluing Machine Adjuster Name Role Phone Colette Herrera CHAIN PERSON Primary Care Provider Salma Abdi MD Primary Care Provider [phone] Reason for Visit * Reason Onset Date Comments Appointment Request 08/18/2022 Encounter Details Date Type Department Care Team (Late st Contact Info) Description 08/18/2022 Telephone [facility] MEDICINE [address] [place] [address] Colette Herrera FNP Appointment Request Social History Tobacco Use Types Packs/Day Years [...] Don't know 12/08/2021 10 :21 AM EDT COVID-19 Exposure Response Date Recorded In the last 10 days, have yo u been in contact with someone who was confirmed or suspected to have Coronavirus/COVID-19? No / Unsure 07/21/2022 8:46 AM EDT documented as of this encounter Miscellaneous Notes * Telephone Encounter - Jose De Jesus Escobar RN - 08/18/2022 1:51 PM EDT T/C to [phone] for below message, pt. States she is all set, no further question. * Telephone Encounter - Soniya Cagle - 08/18/2022 11:21 AM EDT Tc from pt requesting a call from a nurse in regards to her visit on 08/20/2022. Please contact pt ay [phone] documented in this encounter Plan of Treatment Not on file documented as of this encounter Visit Diagnoses Not on filedocumented in this encounter Additional Health Concerns Assessment Noted Time PHQ-9 Depression Total Score: 7 07/16/19 23 3:14 PM EDT documented as of this encounter Care Teams Gluing Machine Adjuster Relationship Specialty Start Date End Date Colette Herrera FNP PCP - General Family Medicine 03/26/22 11/16/22 Salma Vinson MD [address] [place] [phone] PCP - General Family Medicine 11/17/22 documented as of this encounter
--- OUTSIDE RECORDS SUMMARY | 2024-11-18 22:41 | XMS_ITS | Encounter Summary ---
Demographics Address [address] [facility] [address] [place] [address] Mobile Phone Preferred Language en Marital Status Unknown Mandaen Affiliation Unknown Race Other Race Ethnic Group Unknown Author Organization [employer] Address [address] [facility] 7[address] [place] [address] Care Team Providers Care Industrial Psychologist Name Role Phone Colette Herrera COOK FROZEN DESSERT Primary Care Provider Suma Salma Castro MD Primary Care Provider [phone] Encounter Details Date Type Department Care Team (Late st Contact Info) Description 03/16/2022 Orders Only [facility] [address] [place] [address] Aaron Ladd MD [address] [place] [address] Influenza-like symptoms Social History Tobacco Use Types Packs/Day Years Used Date Smoking Tobacco: Every Day Cigarettes Smokeless Tobacco: Never Comments Unknown Sex and Gender Information Value [...] suspected to have Coronavirus/COVID-19? No / Unsure 03/13/2022 9:54 AM EST documented as of this encounter Plan of Treatment Not on file documented as of this encounter Procedures Procedure Name Priority Date/Time Associated Diagnosis Comments POTASSIUM Routine 03/25/2022 7:59 PM EST Influenza-like symptoms MAGNESIUM Routine 03/25/2022 5:00 PM EST Influenza-like symptoms HEPATIC FUNCTION PANEL Routine 03/25/2022 5:00 PM EST Influenza-like symptoms BASIC METABOLIC PANEL Routine 03/25/2022 5:00 PM EST Influenza-like symptoms XR CHEST 2 VIEWS Routine 03/16/2022 9:01 AM EST documented in this encounter Results * (ABNORMAL) Potassium (03/25/2022 7:59 PM EST) Potassium 2.9(L) 3.3 - 5.1 mmol/L [facility] 03/25/2022 7:59 PM EST 03/25/2022 8:02 PM EST [facility] External Provider LAB BLO OD ORDERABLES Final Result Performing Organization Address City/[facility]/ZIP Co de Phone Number [facility] [address] [place] [address] [phone] * Magnesium (03/25/2022 5:00 PM EST) Magnesium 1.7 1.6 - 2.6 mg/dL [facility] 03/25/2022 5:00 PM EST 03/25/2022 5:04 PM EST [facility] External Provider LAB BLO OD ORDERABLES Final Result Performing Organization Address City/[facility]/ZIP Co de Phone Number [facility] [address] [place] [phone] * (ABNORMAL) Basic Metabolic Panel (03/25/2022 5:00 PM EST) Sodium 142 135 - 145 mmol/L [facility] Potassium 3.1(L) 3.3 - 5.1 mmol/L [facility] Chloride 97 96 - 108 mmol/L [facility] Carbon Dioxide 30(H) 22 - 29 mmol/L [facility] Anion Gap 18 12 - 20 [facility] Urea Nitrogen (BUN) 7(L) 9 - 16 mg/dL [facility] Creatinine, Serum 0.54 0.5 - 1.4 mg/dL [facility] Creatinine Clr Calc Pharmacy 126.1 [facility] Comment:Provided height and weight: 170.18 cm,57.153 kg.eGFR (calculated from the MDRD study equation) and eCrCl(calculated from the Cockcroft-Gault equation) are based ondifferent parameters and may not yield comparable results.If eCrCl result is absurd, please check patient'sheight/weight. Estimated Glomerular Filt Rate >60 [facility] Comment:NOTE: For -Am erican individuals, multiply the result by 1.210.Chronic Kidney Disease: Estimated GFR < 60 mL/min/1.62c3Plrqgc Kidney Disease: Estimated GFR < 15 mL/min/1.73m2 Glucose 88 60 - 115 mg/dL [facility] Calcium 8.6 8.4 - 10.2 mg/dL [facility] 03/25/2022 5:00 PM EST 03/25/2022 5:04 PM EST us [facility] External Provider LAB BLO OD ORDERABLES Final Result [facility] [address] [place] [phone] * (ABNORMAL) Hepatic Function Panel (03/25/2022 5:00 PM EST) Bilirubin, Total 2.1(H) 0.0 - 1.0 mg/dL [facility] Bilirubin, Direct 1.0(H) 0.0 - 0.5 mg/dL [facility] Aspartate Amino Transferase 136(H) 5 - 31 U/L [facility] Alanine Aminotransferase 59(H) 0 - 31 U/L [facility] Total Protein 5.8(L) 6.5 - 8.0 g/dL [facility] Albumin Level 3.4(L) 3.5 - 5.0 g/dL [facility] Alkaline Phosphatase 112 39 - 117 U/L [facility] 03/25/2022 5:00 PM EST 03/25/2022 5:04 PM EST us [facility] External Provider LAB BLO OD ORDERABLES Final Result [facility] [address] [place] [phone] * XR Chest 2 Views (03/16/2022 9:01 AM EST) Anatomical Region Laterality Modality Chest Radiographic Tyra ging 03/16/2022 9:01 AM EST Narrative 03/17/2022 1:59 PM EST [address] [address] XRay Report Signed Patient: Jenifer Miller MR#: [id number] : 1980 Acct:[id number] Age/Sex: 41 / F ADM Date: 03/16/22 Loc: [facility] Attending Dr: Aaron Ladd MD Ordering Physician: AARON LADD MD Date of Service: 03/16/22 Procedure(s): XR chest 2V Accession Number(s): [id number] cc: AARON LADD MD EXAMINATION: XR CHEST 2 VIEWS CLINICAL INFORMATION: Cough and shortness of breath. COMPARISON: Prior chest radiographs, most recently 10/18/2009. TECHNIQUE: Frontal and lateral views of the chest were obtained. FINDINGS: The heart, great vessels, pulmonary vasculature and mediastinum are normal. The lungs show no focal infiltrate, effusion or pneumothorax. There is no acute osseous abnormality. XR/XR chest 2V IMPRESSION: No active cardiopulmonary disease. Dictated By: Erick Collier MD Signed By: <Electronically signed by Erick Collier MD in OV> 03/17/22 1356 DD/ 0901 TD/TT: News Production Supervisor: MAR Procedure Note Donotuseinterpreter, Image - 03/17/[address] [address] XRay Report Signed Patient: Jenifer Miller RMR#: [id number] : 1980Acct:[id number] Age/Sex: 41 / FADM Date: 03/16/22 Loc: [facility] Attending Dr: Aaron Ladd MD Ordering Physician: AARON LADD MD Date of Service: 03/16/22 Procedure(s): XR chest 2V Accession Number(s): [id number] cc: AARON LADD MD EXAMINATION: XR CHEST 2 VIEWS CLINICAL INFORMATION: Cough and shortness of breath. COMPARISON: Prior chest radiographs, most recently 10/18/2009. TECHNIQUE: Frontal and lateral views of the chest were obtained. FINDINGS: The heart, great vessels, pulmonary vasculature and mediastinum are normal. The lungs show no focal infiltrate, effusion or pneumothorax. There is no acute osseous abnormality. XR/XR chest 2V IMPRESSION: No active cardiopulmonary disease. Dictated By: Erick Collier MD Signed By: <Electronically signed by Erick Collier MD in OV> 03/17/22 1356 DD/ 0901 TD/TT: News Production Supervisor: MAR [facility] External Provider IMG XR PROCEDURES Final Result documented in this encounter Visit Diagnoses Diagnosis Influenza-like symptoms Other general symptoms documented in this encounter Care Teams Industrial Psychologist Relationship Specialty Start Date End Date Colette Herrera FNP PCP - General Family Medicine 03/26/22 11/16/22 Salma Vinson MD [address] [place] [phone] PCP - General Family Medicine 11/17/22 documented as of this encounter
--- OUTSIDE RECORDS SUMMARY | 2024-11-18 22:41 | XMS_ITS | Patient Health Record ---
Demographics Address [address] [place] [address] Mobile Preferred Language en Marital Status Unknown Samaritan Affiliation Unknown Race Unknown Ethnic Group Refused to Report Author Organization [facility] Address [address] [place] [address] Care Team Providers Care Manager Validation Name Role Phone Marni Phillip Primary Care Provider Jossue Aaron [phone] Allergies Allergen (clinical drug ingredient) Drug/Non Drug Allergy documented on EMR Reaction Allergy Type Onset Date Status diphenhydramine Benadryl hives Drug Allergy A ctive Reason For Referral No Information Medications Medication SIG (Take, Route, Fr equency, Duration) Notes Start Date End Date Status Bentyl 10 MG 1-2 capsules Orally QID prn abdominal cramps 05/07/2011 02/09/2024 Active Problems Problem Type SNOMED Code ICD Code Onset Dates Problem Status W/U Status Risk Notes Problem Irritable bowel syndrome (83345791) Irritable bowel syndrome (564.1) Active confirmed Problem Weight decreased (454982478) Loss of weight (783.21) Active confirmed Problem Diarrhea (20951236) Diarrhea (787.91) Active confirmed Problem Epigastric pain (01838328) Abdominal pain, epigastric (789.06) Active confirmed Problem Constipation (22280316) Constipation (564.00) Active confirmed Plan Of Treatment Pending Test Test Name Order Date CBC w DIFF 12/29/2011 ENDOMYSIAL IGA 05/07/2011 TRANSGLUTAMINASE AB IGA 05/07/2011 TRANSGLUTAMINASE AB IGG 05/07/2011 Insurance Providers Payer Name Payer Address Payer Phone Subscriber Number Group Number Insured Name Patient Relationship to Insured Coverage Start Date Coverage End Date [facility] [address] [place] [address] [phone] [id number] LAURA MIRELES Self - patient is the insured MEDICAID OF [facility] [address] [place] [address] [id number] MARC Avila LAURA Self - patient is the insured Medical (General) History Medical History History ICD Code Fibromyalgia Denies DE,DM,CVA,Lung disease,renal dise ase Surgical History Surgery Date(Month/Year) Ears
--- NOTE | 2024-11-18 23:41 | PC.NURSE ---
Pt arrived through triage reporting left great toe discoloration she noticed x4 days ago, pt reports no pain due to her baseline numbness in her lower extremities due to fibromyalgia, pt is unaware exactly what caused this injury or when. On inspection there was green discoloration on the great and 5th toe, reports no pain or other complaints. Pending X-ray results and provider assessment. +CMS and bilat pedal pulse in lower extremities.
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
[2024-11-19 02:26] VITALS: BP 107/71; PULSE 98; RESP 16; TEMP 36.9; O2SAT 97
== END 2024-11-19 02:27 | disposition home or self-care (01) ==
PROVIDERS: Emergency Provider Emergency Medicine
DX: S99.922A Unspecified injury of left foot, initial encounter (principal); M79.675 Pain in left toe(s); Z79.899 Other long term (current) drug therapy; X58.XXXA Exposure to other specified factors, initial encounter; Y93.9 Activity, unspecified; Y92.9 Unspecified place or not applicable; Y99.8 Other external cause status
CPT/HCPCS: 73630; 99283; 99284

== ENCOUNTER → 2024-11-18 22:20 | Outpatient (BNV) | payer MEDICAID, SELFPAY | PROVIDERS: Visit Provider Student in an Organized Health Care Education/Training Program | DX: M79.672 Pain in left foot (principal) | CPT/HCPCS: 73630 ==